=== PATIENT | female | born 1980 | race Caucasian/White ===

== ENCOUNTER 2023-04-25 11:37 | Emergency (ER) | payer BC ==
[~2023-04-25] VITALS: Ht 167.6 cm; Wt 59.4 kg
[2023-04-25 12:43] LABS: BASOPHILS # (AUTO) 0.03 K/uL (0.00-0.20); BASOPHILS % (AUTO) 0.2 % (0.0-5.0); HEMATOCRIT 39.4 % (36-48); IMMATURE GRANULOCYTE ABSOLUTE 0.04 K/uL (0-1); LYMPHOCYTES # (AUTO) 0.5 K/uL (1.0-4.8); LYMPHOCYTES % (AUTO) 4.2 % (21.0-51.0); MEAN CORPUSCULAR HGB CONC 33.8 g/dL (32.0-36.0); MEAN CORPUSCULAR VOLUME 91.8 fL (79-99); MONOCYTES # (AUTO) 0.4 K/uL (0.1-1.0); MONOCYTES % (AUTO) 3.3 % (3.0-13.0); NEUTROPHILS # (AUTO) 11.9 K/uL (1.8-7.7); PLATELET COUNT (AUTO) 277 K/uL (130-400); RED BLOOD CELL COUNT(AUTO) 4.29 MIL/uL (4.00-5.50); RED CELL DISTRIBUTION WIDTH 12.9 % (11.0-15.5); WHITE BLOOD COUNT (AUTO) 12.9 K/uL (4.8-10.8)
[2023-04-25 12:53] LABS: CREATININE 0.9 mg/dL (0.5-1.5); POTASSIUM 3.9 mmol/L (3.5-5.1)
[2023-04-25 12:58] LABS: ALBUMIN 4.2 g/dL (3.5-5.0); BILIRUBIN,TOTAL 0.7 mg/dL (0.2-1.0); TOTAL PROTEIN, SERUM 7.9 g/dL (6.0-8.3)
[2023-04-25 13:01] LABS: HCG,QUALITATIVE URINE NEGATIVE (NEGATIVE)
[2023-04-25 13:20] LABS: ADD UA MICROSCOPIC YES; APPEARANCE,URINE CLOUDY (CLEAR); BILIRUBIN,URINE NEGATIVE (NEGATIVE); COLOR,URINE LIGHT-YELLOW (YELLOW); GLUCOSE, URINE (UA) NEGATIVE (NEGATIVE); KETONES,URINE 100 mg/dL (NEGATIVE); LEUKOCYTE ESTERASE ,URINE NEGATIVE Leu/uL (NEGATIVE); NITRATE,URINE NEGATIVE (NEGATIVE); OCCULT BLOOD,URINE NEGATIVE (NEGATIVE); PROTEIN,URINE 20 mg/dL (NEGATIVE); UROBILINOGEN,URINE 0.2 mg/dL (0.2-1.0)
[2023-04-25 13:21] LABS: BACTERIA,URINE RARE /HPF (None Seen); MUCUS,URINE FEW LPF (None Seen); SQUAMOUS EPITHELIAL CELL,UR RARE /HPF (0-2); WBC,URINE 0-1 /HPF (0-1)
[2023-04-25] MEDS ORDERED: KETOROLAC 30MG VIAL (30MG/ML) ONE (15:19)
[2023-04-25] MEDS ORDERED: ONDANSETRON 4MG INJ ONE (15:19)
[2023-04-25] MEDS ORDERED: 0.9%NACL 1000ML 1,000 ML IV ONE ×2 (15:19→15:30)
[2023-04-25] MEDS ORDERED: KETOROLAC 30MG VIAL (30MG/ML) IVP ONE (15:30)
[2023-04-25] MEDS ORDERED: ONDANSETRON 4MG INJ IVP ONE (15:30)
[2023-04-25] MEDS ORDERED: IBUP-2070 PO (16:13)
[2023-04-25] MEDS ORDERED: TAMS-1 PO (16:13)
[2023-04-25] MEDS ORDERED: TAMSULOSIN HCL 0.4 MG CAP.ER.24H PO ONE (16:30)
[2023-04-25] MEDS ORDERED: CEFTRIAXONE 1G VIAL IVPB ONE (16:30)
[2023-04-25 16:59] VITALS: BP 138/81; PULSE 75; RESP 16; O2SAT 98
== END 2023-04-25 17:14 | disposition home or self-care (01) ==
LOC: EDH 11:37
DX: N13.2 Hydronephrosis with renal and ureteral calculous obstruction (principal)
CPT/HCPCS: 99284; 74176; 96365; 96375; 96361; 80053; 85025; 81001; 81025; 36415; J7030; J0696; J2405; J1885; 96367